=== PATIENT | female | born 1950 | race Caucasian/White ===

== ENCOUNTER → 2021-09-27 | Outpatient (CLI) | payer MEDICARE, OTHER | LOC: MC.RAD 13:03 | DX: Z12.31 Encounter for screening mammogram for malignant neoplasm of breast (principal) ==

== ENCOUNTER → 2023-01-11 | Outpatient (RCR) | payer MEDICARE, OTHER | LOC: WSPT | DX: F07.81 Postconcussional syndrome (principal); R42 Dizziness and giddiness ==

== ENCOUNTER 2023-02-08 09:45 | Outpatient (RCR) | payer MEDICARE, OTHER | END 2023-02-10 | disposition home or self-care (01) | LOC: WSPT | DX: R26.81 Unsteadiness on feet (principal) ==

== ENCOUNTER 2023-03-12 15:31 | Outpatient (RCR) | payer MEDICARE, OTHER ==
[~2023-03-12 15:31] MED LIST: ASPIRIN 81M81 MG/TA2 PO; B-121000 MCG PO; CRESTOR 10MG10 MG PO; HCTZ 25MG TAB25 MG PO; IMDUR 30MG30 MG/TAB PO; LASIX 20MG TABL20 MG PO; NEXIUM 40MG40 MG PO; PLAVIX 75MG TAB75 MG PO; ROBAXIN 75750 MG/TAB PO; THE MEDICINE S200 M2 PO; WOMEN'S DAILY1 TAB PO
== END 2023-03-13 | disposition home or self-care (01) ==
LOC: COL.CR
DX: I70.211 Atherosclerosis of native arteries of extremities with intermittent claudication, right leg (principal); I73.9 Peripheral vascular disease, unspecified

== ENCOUNTER 2023-06-10 09:45 | Outpatient (RCR) | payer MEDICARE, OTHER ==
[~2023-06-10 09:45] MED LIST changes: +CEFTIN 250250 MG/TAB PO; +CIPRO 500MG TA500 MG PO; +PREDNISONE20 MG PO; +PYRIDIUM200 M1 PO
== END 2023-06-13 | disposition home or self-care (01) ==
LOC: WSPT
DX: R26.81 Unsteadiness on feet (principal); F07.81 Postconcussional syndrome

== ENCOUNTER 2023-07-12 09:45 | Outpatient (RCR) | payer MEDICARE, OTHER | END 2023-07-13 | disposition home or self-care (01) | LOC: WSPT | DX: R26.81 Unsteadiness on feet (principal) ==

== ENCOUNTER 2023-12-06 08:06 | Emergency (ER) | payer MEDICARE, OTHER ==
[~2023-12-06] VITALS: Ht 154.9 cm; Wt 71.4 kg
[2023-12-06 08:21] VITALS: TEMP 97.6
[2023-12-06] MEDS ORDERED: Acetaminophen 500 MG TAB PO ONE (08:45)
[2023-12-06 08:47] LABS: BASO # 0.1 K/mm3 (0.0-0.2); BASO % 0.8 % (0.0-2.0); EOS # 0.7 K/mm3 (0.0-0.7); GRAN # 4.9 K/mm3 (1.4-6.5); GRAN % 59.8 % (42.2-75.2); HEMATOCRIT 37.8 % (37.0-47.0); HEMOGLOBIN 12.1 g/dl (12.5-16.0); LYMPH # 1.7 K/mm3 (1.2-3.4); LYMPH % 20.5 % (20.0-51.0); MEAN CELL VOLUME 81 fl (80.0-100.0); MEAN CORPUSCULAR HEMOGLOBIN 26 pg (27-31); MEAN CORPUSCULAR HGB CONC 32 g/dl (33.0-37.0); MEAN PLATELET VOLUME 9.4 fl (7.4-10.4); MONO # 0.8 K/mm3 (0.1-0.6); MONO % 9.7 % (1.7-9.3); PLATELET COUNT 318 K/mm3 (130-400); RED BLOOD COUNT 4.67 M/mm3 (4.10-5.30)
[2023-12-06 09:06] LABS: ALBUMIN 3.6 gm/dL (3.4-4.8); BILIRUBIN,TOTAL 0.5 mg/dL (0.2-1.2); CALCIUM 9.7 mg/dL (8.4-10.2); CREATININE, serum 0.92 mg/dL (0.57-1.11); POTASSIUM 3.8 mmol/L (3.5-4.5)
[2023-12-06 09:12] LABS: TROPONIN-I 0.012 ng/mL (0.00-0.033)
[2023-12-06] MEDS ORDERED: NS 100 ML IV SCH (09:32)
[2023-12-06] MEDS ORDERED: Iohexol 300 - 100 ML VIAL IV ONE (09:32)
[2023-12-06 12:35] VITALS: BP 137/56; PULSE 49
== END 2023-12-06 12:35 | disposition home or self-care (01) ==
LOC: COL.ER 08:06
PROVIDERS: Emergency Medicine
DX: R42 Dizziness and giddiness (principal); R51.9 Headache, unspecified; M54.2 Cervicalgia
CPT/HCPCS: J2765; Q9967

== ENCOUNTER → 2024-01-29 | Outpatient (CLI) | payer MEDICARE ==
[~2024-01-29] MED LIST changes: +Gadoterate 15 ML VIAL IV ONE
== END ==
LOC: COL.RAD 12:48
DX: R42 Dizziness and giddiness (principal); R26.81 Unsteadiness on feet
CPT/HCPCS: A9575

== ENCOUNTER 2024-06-16 16:33 | Emergency (ER) | payer MEDICARE, OTHER ==
[~2024-06-16] VITALS: Ht 152.4 cm; Wt 71.4 kg
[~2024-06-16 16:33] MED LIST changes: -Gadoterate 15 ML VIAL IV ONE
[2024-06-16 16:50] VITALS: BP 156/80; TEMP 97.8
[2024-06-16 17:15] LABS: COLLECTION METHOD CLEAN CATCH
[2024-06-16 17:22] LABS: URINE APPEARANCE CLOUDY (CLEAR/HAZY); URINE BLOOD 3+ (NEGATIVE); URINE COLOR YELLOW (YELLOW); URINE GLUCOSE NEGATIVE (NEGATIVE); URINE KETONE NEGATIVE (NEGATIVE); URINE NITRATE NEGATIVE (NEGATIVE); URINE PROTEIN(semi-quant) TRACE (NEGATIVE)
[2024-06-16] MEDS ORDERED: cefTRIAXone 1 G,Lidocaine PF 1% 2.1 ML IM ONE (19:00)
[2024-06-16] MEDS ORDERED: CEPHALEXIN500 M1 PO (20:06)
[2024-06-16 20:54] VITALS: PULSE 84
[2024-06-17] MEDS ORDERED: CIPRO 500MG TA500 MG PO (09:28)
[2024-06-17] MEDS ORDERED: PREDNISONE20 MG PO (14:33)
[2024-06-17] MEDS ORDERED: OMNICEF 300MG300 MG PO (14:33)
== END 2024-06-16 20:21 | disposition home or self-care (01) ==
LOC: COL.ER 16:33
PROVIDERS: Family Medicine
DX: N39.0 Urinary tract infection, site not specified (principal); Z88.2 Allergy status to sulfonamides; Z87.891 Personal history of nicotine dependence
CPT/HCPCS: J0696

== ENCOUNTER 2024-06-17 13:02 | Emergency (ER) | payer MEDICARE, OTHER ==
[~2024-06-17] VITALS: Ht 152.4 cm; Wt 71.4 kg
[~2024-06-17 13:02] MED LIST changes: +CEPHALEXIN500 M1 PO
[2024-06-17 13:15] VITALS: TEMP 97.6
[2024-06-17] MEDS ORDERED: predniSONE 20 MG TAB PO ONE (13:30)
[2024-06-17] MEDS ORDERED: diphenhydrAMINE 25 MG CAP PO ONE (13:30)
[2024-06-17] MEDS ORDERED: Famotidine 20 MG TAB PO ONE (13:30)
[2024-06-17] MEDS ORDERED: OMNICEF 300MG300 MG PO (14:33)
[2024-06-17] MEDS ORDERED: PREDNISONE20 MG PO (14:33)
[2024-06-17 14:55] VITALS: BP 116/70; PULSE 66
== END 2024-06-17 14:55 | disposition home or self-care (01) ==
LOC: COL.ER 13:02
DX: R06.02 Shortness of breath (principal); T36.8X5A Adverse effect of other systemic antibiotics, initial encounter; N39.0 Urinary tract infection, site not specified; Z88.2 Allergy status to sulfonamides; Z88.1 Allergy status to other antibiotic agents; Z87.891 Personal history of nicotine dependence
CPT/HCPCS: J7512

== ENCOUNTER → 2024-07-01 | Outpatient (CLI) | payer MEDICARE, OTHER ==
[~2024-07-01] MED LIST changes: +Albuterol 0.083% Neb Soln 2.5 MG/3 ML UD IH ONE; +OMNICEF 300MG300 MG PO
== END ==
LOC: COL.CARD 12:23
DX: J44.9 Chronic obstructive pulmonary disease, unspecified (principal)